=== PATIENT | female | born 1975 | race Caucasian/White ===

== ENCOUNTER → 2024-05-29 08:48 | Outpatient (REF) | payer OTHER, SELFPAY | LOC: WDC 08:48 | PROVIDERS: ATTENDING PHYSICIAN Nurse Practitioner Family | DX: N63.23 Unspecified lump in the left breast, lower outer quadrant (principal) | CPT/HCPCS: 76642; 77062; 77066 ==

== ENCOUNTER 2025-05-29 15:02 | Emergency (ER) | payer OTHER, SELFPAY ==
[2025-05-29 15:18] VITALS: BP 159/91
[2025-05-29 15:49] LABS: Hematocrit 39.6 % (37.0-47.0); Hemoglobin 13.5 g/dL (12.0-16.0); Mean Corp Hgb Conc. 34.1 g/dL (33.0-37.0); Mean Corpuscular Volume 88.0 fL (81.0-99.0); Nucleated Red Blood Cells % 0 %; Platelet Count 235 10^3/uL (130-400); Red Cell Dist. Width 12.4 % (11.5-14.5)
[2025-05-29 15:58] LABS: D-Dimer 0.31 ug/mlFEU (0.00-0.50)
[2025-05-29 16:05] LABS: HCG, Serum Qualitative Screen Negative
[2025-05-29 16:11] LABS: Troponin I < 0.012 ng/ml
[2025-05-29 16:12] LABS: ALT (SGPT) 11 U/L (0-35); AST (SGOT) 13 U/L (14-36); Albumin 4.6 g/dl (3.5-5.0); Alkaline Phosphatase 41 U/L (38-126); Blood Urea Nitrogen 16 mg/dl (7-17); Calcium 9.0 mg/dl (8.4-10.2); Carbon Dioxide 26 mmol/L (22-30); Chloride 103 mmol/L (98-107); Glucose 86 mg/dl (70-99); Potassium 4.0 mmol/L (3.5-5.1); Sodium 135 mmol/L (135-145); Total Protein 7.6 g/dl (6.3-8.2); eGFR > 60.00
[2025-05-29 18:26] VITALS: BMI 20.7
--- NOTE | 2025-05-29 18:29 | ED.GENMED ---
History of Present Illness
General
Chief Complaint: Chest Pain
Source: patient
Time Seen by Provider: 05/29/25 18:08
History of Present Illness
History of Present Illness:
49-year-old female with no significant past medical history presents to the emergency department at the request of her primary care provider for evaluation of pleuritic chest discomfort that radiates in between her shoulder blades over the last 2
days. Patient notes that last week she had a mild upper respiratory infection noting more of a head cold, never having a cough or shortness of breath. Patient's mother had a history of pulmonary embolism following 2 separate surgeries. Patient
also notes that her Apple Watch told her her heart rate was slightly increased than her normal resting baseline. Patient notes that she was recently in [facility] and [facility] for work trip and pleasure vacation. Denies any lower extremity
edema.
Past History
Past History
ED Past Medical History: None
ED Past Surgical History: None
Social History
Tobacco: Vaping (occasional, not daily)
Alcohol: Occasional
Drug: None
Personal:
Living: with family
Employment: Employed
Review of Systems
Review of Systems
All Other Systems: ROS reviewed and negative except as documented in HPI and ROS
Phy Exam
Physical Exam
Physical Exam:
GENERAL: Alert , in no apparent distress
HEAD: Normocephalic atraumatic
EYE: conjunctiva clear
NECK: Supple
ENT: o/p clr, mmm.
CARDIAC: Regular rate and rhythm
LUNGS: Clear breath sounds bilaterally, no acute respiratory distress, no wheezes/rales/rhonchi
NEUROLOGICAL: Alert and oriented
SKIN: Warm and dry, skin intact.
MUSCULOSKELETAL: well perfused.
PSYCH: Normal and appropriate interaction.
Scores
Heart Failure Risk
Heart Failure Risk Score: Not Applicable
Heart Score for Chest Pain Patients
STEMI patient?: No
History: Slightly or Non-Suspicious
ECG: Normal
Age: >45 - <65 years
Risk Factors: No Risk Factors
Troponin: </= Normal Limit
Heart Score for Chest Pain Patients: 1
Heart Score Risk: 2.5% MACE over next 6 weeks
Withdrawal Assessment of Alcohol
Withdrawal Assessment Completed?: Not applicable
Course
Orders/Labs/Results
Orders:
Orders
05/29/25 15:26
Electrocardiogram (*1) Urgent
Reason for Study: Chest Pain
05/29/25 15:27
EKG- Treatment ONCE
Test Result ONCE
05/29/25 15:34
Complete Blood Count/With Diff Urgent
Comprehensive Metabolic Panel Urgent
D-Dimer Urgent
HCG, Serum Qualitative Screen Urgent
Troponin I Urgent
05/29/25 18:20
CR Chest - 2 Views Urgent
Comment:
Reason For Exam: chest pain, recent URI
Abnormal Lab Results
05/29/25
15:34
Neutrophils % 75.7 H %
(42.2-75.2)
Lymphocytes % 15.7 L %
(20.5-51.1)
AST 13 L U/L
(14-36)
05/29/25 15:34
05/29/25 15:34
Vital Signs
Initial and Last Documented VS:
Initial Vital Signs
Temp Pulse Resp BP Pulse Ox
98.8 F 80 18 159/91 98
05/29/25 15:18 05/29/25 15:18 05/29/25 15:18 05/29/25 15:18 05/29/25 15:18
Last Documented Vital Signs
Temp Pulse Resp BP Pulse Ox
98.8 F 69 18 116/69 98
05/29/25 15:18 05/29/25 19:14 05/29/25 19:14 05/29/25 19:14 05/29/25 19:14
MDM/Problems Addressed
Differential Diagnosis Includes:
Pleurisy
PE
PTX
Myocarditis
MDM/Problems Addressed:
49-year-old female presented to the ER at the request of primary care provider for PE rule out. Patient with risk factors including recent travel and mother with history of PE although mother's PEs were secondary to a surgical procedure. Labs were
initiated on arrival which show a negative D-dimer. Otherwise reassuring EKG and troponin. Will order chest x-ray. Anticipate discharge home.
*Radiology
Radiology exam reviewed: preliminary read by ED provider (normal CXR)
*Pulse Oximetry
SaO2: 98
Oxygen Mode of Delivery: Room air
Patient hypoxic: no
*EKG
Heart Rate: 74
Rate: normal
Rhythm: sinus arrhythmia
Ischemia: no ischemia
*Buyer Agent Interpretation
Rate: normal
Heart Rate: 75
Rhythm: sinus arrhythmia
*Critical Care Note
Total Time (30-74mins, 75-104mins- exclusive of procedures): Not Applicable
Patient Management
Discussion with other providers: PCP
Escalation/DeEscalation of care consider admission/obs:
Patient's workup reassuring. Chest x-ray within normal limits. She does have an appointment scheduled with her primary care provider this coming Wednesday. Discussed return precautions. Stable for discharge.
ED Attending Note
-
Portions of this chart may have been created with voice recognition software.� Occasional wrong word or��sound alike� substitutions may have occurred due to the inherent limitations of voice recognition software.
Discharge Plan
Departure
Patient Disposition: Home (Routine Discharge)
Date of Disposition: 05/29/25
Time of Disposition: 19:12
Patient with high blood pressure during this ER visit?: Yes
Discharge Problem:
Pleurisy
Instructions: Costochondritis (DC)
Referrals:
Mahad Machado MD [Family Provider, Family Practice]
Interventions
Interventions:
*Risk Screen - Suicide Last Done: 05/29/25 15:18
*General Assessment Last Done: 05/29/25 15:18
*Neglect/Abuse Screening Last Done: 05/29/25 15:18
*ED COVID-19 Vaccine History Last Done: 05/29/25 15:25
*ED Influenza Vaccine History Last Done: 05/29/25 15:25
[facility] Fall Risk Assessment Tool Last Done: 05/29/25 18:26
*Nursing Disposition Last Done: 05/29/25 19:15
ED- Cardiac Assessment Last Done: 05/29/25 18:15
Discharge Date and Time
Discharge Date/Time: 05/29/25 19:47
Print Language: SRI LANKAN
[2025-05-29 19:14] VITALS: BP 116/69
== END 2025-05-29 19:47 | disposition home or self-care (01) ==
LOC: EMR 15:02
PROVIDERS: EMERGENCY PHYSICIAN Emergency Medicine; FAMILY PHYSICIAN Family Medicine
DX: R09.1 Pleurisy (principal); F17.290 Nicotine dependence, other tobacco product, uncomplicated
CPT/HCPCS: 99283; 71046; 80053; 84484; 84703; 85025; 85379; 93005